=== PATIENT | male | born 1930 | race Caucasian/White ===

== ENCOUNTER 2020-09-03 21:08 | Emergency (ER) | payer MEDICARE, BC ==
[~2020-09-03] VITALS: Ht 188 cm; Wt 81.8 kg
[~2020-09-03 21:08] MED LIST: ALAVERT10 M1 PO; ASPIRIN E.C. 8181 MG PO; CALCIUM200 MG PO; CETIRIZINE10 MG PO; CIPRO 500MG TA500 MG PO; COUMADIN6 MG PO; DOCUSATE CALCI100 MG PO; FISH OIL1 IU PO; FLAGYL 250250 MG/TAB PO; LEVOTHROID0.05 MG PO; LEVOTHYROXINE0.1 MG PO; LISINOPRIL40 MG PO; LISINOPRIL5 MG PO; LOPRESSOR 550 MG/TAB PO; METOPROLOL TAR100 MG PO; MULTIPLE VITAMI1 CAP PO; PAROXETINE20 MG PO; PAXIL 20MG20 MG PO; SIMVASTATIN40 MG PO; TEMAZEPAM15 MG PO; VITAMIN D NATU400 IU PO; WARFARIN SODIUM1 MG PO; ZOCOR
[2020-09-03 21:31] LABS: BASO % 0.1 % (0.0-2.0); EOS % 0.5 % (0-4.0); GRAN # 7.4 (1.4-6.5); GRAN % 84.3 % (42.2-75.2); LYMPH # 0.3 (1.2-3.4); LYMPH % 3.9 % (20.0-51.0); MEAN CELL VOLUME 102 fl (80.0-100.0); MEAN CORPUSCULAR HGB CONC 33 g/dl (33.0-37.0); MEAN PLATELET VOLUME 11.4 fl (7.4-10.4); MONO # 0.9 (0.1-0.6); MONO % 9.7 % (1.7-9.3); PLATELET COUNT 174 K/mm3 (130-400); RED BLOOD COUNT 2.88 M/mm3 (4.20-5.60); REDCELL DISTRIBUTION WIDTH-CV 15.7 % (11.5-14.5)
[2020-09-03 21:48] LABS: ALBUMIN 3.7 gm/dL (3.5-5.0); BILIRUBIN,TOTAL 0.8 mg/dL (0.0-1.0); CALCIUM 9.8 mg/dL (8.4-10.2); CREATININE, serum 1.9 (0.66-1.25); POTASSIUM 3.2 mmol/L (3.4-5.0); TOTAL PROTEIN 6.6 gm/dL (6.4-8.2)
[2020-09-03 21:51] LABS: HEMATOCRIT 29.3 % (42.0-52.0); HEMOGLOBIN 9.7 g/dl (13.5-18.0); MEAN CORPUSCULAR HEMOGLOBIN 34 pg (27.0-31.0)
[2020-09-03 21:55] LABS: INR 3.9 (0.8-3.0); PROTHROMBIN TIME 43.8 SECONDS (9.7-12.8)
[2020-09-03 21:55] LABS: ARTERIAL BLD GAS O2 SATURATION 94.3 % (92-100); ARTERIAL BLD GAS TCO2 CT 22.2; ARTERIAL BLOOD GAS BASE EXCESS -2.6 (-2-2); ARTERIAL BLOOD GAS HCO3 21.2 meq/L (22-26); ARTERIAL BLOOD GAS PCO2 32.9 mmHg (35-45); ARTERIAL BLOOD GAS PO2 71.2 mmHg (80-100); ARTERIAL BLOOD GAS pH 7.43 (7.35-7.45)
[2020-09-03 23:29] LABS: COLLECTION METHOD CLEAN CATCH
[2020-09-03 23:47] LABS: PH 5 (5-8); SQUAMOUS EPITHELIAL 0-2 /hpf; URINE APPEARANCE Hazy; URINE BACTERIA Rare /hpf; URINE BILIRUBIN Negative (NEGATIVE); URINE BLOOD 3+ (NEGATIVE); URINE COLOR Yellow; URINE GLUCOSE Negative (NEGATIVE); URINE KETONE Negative (NEGATIVE); URINE LEUKOCYTE ESTERASE 2+ (NEGATIVE); URINE NITRATE Negative (NEGATIVE); URINE PROTEIN(semi-quant) 1+ (NEGATIVE); URINE UROBILINOGEN Negative (NEGATIVE)
[2020-09-04] MEDS ORDERED: CEPHALEXIN500 M1 PO (00:49)
[2020-09-04 01:39] VITALS: BP 144/70; PULSE 68; TEMP 98
== END 2020-09-04 01:39 | disposition home or self-care (01) ==
LOC: COL.ER 21:08
PROVIDERS: Family Medicine
DX: N39.0 Urinary tract infection, site not specified (principal); R79.1 Abnormal coagulation profile; I48.91 Unspecified atrial fibrillation; I10 Essential (primary) hypertension; Z79.01 Long term (current) use of anticoagulants; Z88.1 Allergy status to other antibiotic agents; Z79.82 Long term (current) use of aspirin
CPT/HCPCS: J0696; J7120

== ENCOUNTER 2021-01-16 16:54 | Observation (INO) | payer MEDICARE, BC ==
[~2021-01-16] VITALS: Ht 188 cm; Wt 79.6 kg
[~2021-01-16 16:54] MED LIST changes: +CEPHALEXIN500 M1 PO; -COUMADIN6 MG PO; +LASIX 40MG TABL40 MG PO; -LISINOPRIL40 MG PO; +MASON NATURAL2000 IU PO; +PRINIVIL10 MG PO; -VITAMIN D NATU400 IU PO
[2021-01-16 17:48] LABS: COLLECTION METHOD CLEAN CATCH
[2021-01-16 17:51] LABS: BASO % 0.2 % (0.0-2.0); EOS % 0.4 % (0-4.0); GRAN # 7.5 (1.4-6.5); GRAN % 81.8 % (42.2-75.2); HEMOGLOBIN 10.1 g/dl (13.5-18.0); LYMPH # 0.7 (1.2-3.4); LYMPH % 7.5 % (20.0-51.0); MEAN CELL VOLUME 102 fl (80.0-100.0); MEAN CORPUSCULAR HEMOGLOBIN 34 pg (27.0-31.0); MEAN CORPUSCULAR HGB CONC 33 g/dl (33.0-37.0); MEAN PLATELET VOLUME 11.6 fl (7.4-10.4); MONO # 0.9 (0.1-0.6); MONO % 9.3 % (1.7-9.3); PLATELET COUNT 209 K/mm3 (130-400); RED BLOOD COUNT 2.99 M/mm3 (4.20-5.60); REDCELL DISTRIBUTION WIDTH-CV 15.4 % (11.5-14.5)
[2021-01-16 17:54] LABS: HEMATOCRIT 30.5 % (42.0-52.0)
[2021-01-16 17:54] LABS: PH 6 (5-8); SQUAMOUS EPITHELIAL 0-2 /hpf; URINE APPEARANCE Clear; URINE BACTERIA None Seen /hpf; URINE BILIRUBIN Negative (NEGATIVE); URINE BLOOD Negative (NEGATIVE); URINE COLOR Yellow; URINE GLUCOSE Negative (NEGATIVE); URINE KETONE Negative (NEGATIVE); URINE LEUKOCYTE ESTERASE Negative (NEGATIVE); URINE NITRATE Negative (NEGATIVE); URINE PROTEIN(semi-quant) Negative (NEGATIVE); URINE RBC 0-2 /hpf; URINE UROBILINOGEN Negative (NEGATIVE)
[2021-01-16 18:04] LABS: ALANINE AMINOTRANSFERASE 12 U/L (4-49); ALBUMIN 3.8 gm/dL (3.5-5.0); ALKALINE PHOSPHATASE 65 U/L (50-136); ANION GAP 10 mmol/L (7-16); AST,SGOT 20 U/L (15-37); BILIRUBIN,TOTAL 0.7 mg/dL (0.0-1.0); BLOOD UREA NITROGEN 60 mg/dL (9-20); CALCIUM 10.4 mg/dL (8.4-10.2); CARBON DIOXIDE 23 mmol/L (22-30); CHLORIDE 100 mmol/L (98-107); CREATININE, serum 2.24 (0.66-1.25); GLUCOSE 94 mg/dL (74-106); LIPASE 102 U/L (23-300); POTASSIUM 3.4 mmol/L (3.4-5.0); SODIUM 133 mmol/L (137-145); TOTAL PROTEIN 6.9 gm/dL (6.4-8.2)
[2021-01-16 18:24] LABS: TROPONIN-I < 0.012 ng/mL (0.000-0.035)
[2021-01-16] MEDS ORDERED: ZYLOPRIM 300MG300 MG PO (20:28)
[2021-01-16] MEDS ORDERED: ZOLOFT 100MG100 MG PO (20:36)
--- NOTE | 2021-01-16 23:16 | NUR ---
Patient arrived to medical floor room 355 via wheelchair from ER at 22:30 pm. Patient alert and oriented to person only. Patient is very hard of hearing. Patient appears very weak and tired. Assessment completed and charted. Oriented patient to the room. Patient denies any pain or discomfort. Denies chest pain, SOB, N/V, dizziness, or diarrhea. Provided 1 cup of orange juice per patient request. Scheduled meds given per JAN. Call light within reach. Patient denies any needs at this time.
[2021-01-16 23:46] VITALS: BP 119/68; PULSE 74; TEMP 97.2
[2021-01-17] MEDS ORDERED: COUMADIN 6MG6 MG/TAB PO (00:24)
[2021-01-17 00:47] LABS: INR 3.9 (0.8-3.0)
[2021-01-17 03:45] VITALS: BP 125/56; PULSE 78; TEMP 98.2
[2021-01-17 08:00] VITALS: BP 107/51; PULSE 70; TEMP 97.8
[2021-01-17 08:34] LABS: CALCIUM 10.5 mg/dL (8.4-10.2); CREATININE, serum 2.04 (0.66-1.25); POTASSIUM 3.1 mmol/L (3.4-5.0)
--- NOTE | 2021-01-17 09:36 | NUR ---
Pt awake and alert upon entry to room, no C/O pain currently. Shift assessment complete, left Pt call light in reach, bed in lowest position.
--- NOTE | 2021-01-17 09:39 | NUR ---
Initial visit; Patient thanked Aerographer for offering God's blessings and keeping him in Aerographer's prayers.
[2021-01-17 11:46] VITALS: BP 123/67; PULSE 70; TEMP 97.3
--- NOTE | 2021-01-17 15:11 | NUR ---
Eligibility Examiner attempted to discuss discharge planning with patient however patient was asleep when SW attempted. SW then contacted patient's daughter, Lou (ph#[phone]) to discuss discharge planning. Per Lou, patient lives at [facility] with his , Saadia and sees Dr. Garcia for primary care. Patient uses a walker for ambulation and is normally independent with ADLS. Lou reports patient is on a "Phase II" plan at [facility] meaning the only thing he receives assistance with is medications. Lou states patient's is on "Phase III" which means she receives more assistance with ADLS. Lou reports patient has more updated DPOA-HC paperwork since her sister, Juliet in June. Lou emailed updated paperwork which designates Lou Zee, and patient's son, Jose Elias (ph#[phone]). MORENITA reviewed PT/OT recommendation for SNF. Lou states patient may not be agreeable to this and would very likely want to return to [place]. MORENITA contacted SARAH Herrera at [facility] who advised they would likely accept patient back and could even have Home Health come in. MORENITA faxed clinical updates and will continue to follow.
[2021-01-17 17:17] VITALS: BP 129/62; PULSE 80; TEMP 97.9
[2021-01-17 19:47] VITALS: BP 128/71; PULSE 76; TEMP 97.9
--- NOTE | 2021-01-17 20:00 | NUR ---
Patient awake, sitting in the recliner. He is alert and oriented. He denies pain. Potassium protocol ongoing. Lungs are clear. Instructed on fluid restriction. Chair alarm on. Call light within reach.
[2021-01-18 00:33] VITALS: BP 113/58; PULSE 77; TEMP 98.1
[2021-01-18 05:02] VITALS: BP 114/63; PULSE 61; TEMP 97.8
--- NOTE | 2021-01-18 06:12 | NUR ---
Patient had been asleep most of the night. He transferred from recliner to bed at around 2300H. He did try to get out of bed in the middle of the night to use the restroom. Assisted patient with walker and gaitbelt. He denies pain. Bed alarm on.
--- NOTE | 2021-01-18 07:10 | NUR ---
0710 assessment as charted. PT resting in bed. PT reoreinted to the date and time . telemetry on HR irregular. pt has 3+ pitting edema to BLE. [facility] checks wnl. INT to rt arm intact, no redness. PT denies c/o pain.
[2021-01-18 07:26] LABS: INR 3.6 (0.8-3.0); PROTHROMBIN TIME 41.2 SECONDS (9.7-12.8)
[2021-01-18 07:29] LABS: BASO % 0.3 % (0.0-2.0); EOS # 0.1 (0.0-0.7); EOS % 1.2 % (0-4.0); GRAN # 4.4 (1.4-6.5); GRAN % 74.8 % (42.2-75.2); LYMPH # 0.7 (1.2-3.4); LYMPH % 11.3 % (20.0-51.0); MEAN CELL VOLUME 101 fl (80.0-100.0); MEAN CORPUSCULAR HGB CONC 34 g/dl (33.0-37.0); MONO # 0.7 (0.1-0.6); MONO % 11.7 % (1.7-9.3); PLATELET COUNT 205 K/mm3 (130-400); RED BLOOD COUNT 2.72 M/mm3 (4.20-5.60); REDCELL DISTRIBUTION WIDTH-CV 15.1 % (11.5-14.5)
[2021-01-18 07:30] LABS: HEMATOCRIT 27.4 % (42.0-52.0); HEMOGLOBIN 9.2 g/dl (13.5-18.0); MEAN CORPUSCULAR HEMOGLOBIN 34 pg (27.0-31.0)
[2021-01-18 07:35] LABS: CALCIUM 10.1 mg/dL (8.4-10.2); CREATININE, serum 1.79 (0.66-1.25); MAGNESIUM 1.9 mg/dL (1.6-2.3); POTASSIUM 3.5 mmol/L (3.4-5.0)
[2021-01-18 08:42] VITALS: BP 109/59; PULSE 72; TEMP 98.2
--- NOTE | 2021-01-18 11:00 | NUR ---
pt sitting in chair with alarm on. no changes w/ intial assessment. call light in reach.
[2021-01-18 12:08] VITALS: BP 126/65; PULSE 75; TEMP 98.3
[2021-01-18] MEDS ORDERED: COUMADIN4 MG PO (12:12)
[2021-01-18] MEDS ORDERED: LASIX 20MG TABL20 MG PO (12:12)
--- NOTE | 2021-01-18 13:46 | NUR ---
Manufacturing Project Manager was notified by Hospitalist team that patient is ready for discharge today. MORENITA contacted SARAH Herrera at [facility] who advised they are able to accept patient back today. MORENITA then contacted patient's daughter, Lou who will picker feeder patient this afternoon and take him back to [facility]. MORENITA discussed Home Health services with Lou who selected [facility]. MORENITA contacted Seema at [facility] and faxed referral/orders. MORENITA also faxed discharge orders to Sharon at [facility]. No additional needs at this time.
--- NOTE | 2021-01-18 14:45 | NUR ---
Pt discharged to [facility]. Discussed discharge information with Pt and family, escorted Pt to entrance, assisted into vehicle. Pt left with family via private transportation.
== END 2021-01-18 14:45 | disposition home or self-care (01) ==
LOC: COL.ER 16:54 → MEDICAL 18:52
PROVIDERS: Emergency Medicine; Hospitalist; Internal Medicine; Student in an Organized Health Care Education/Training Program; ADMIT Family Medicine
DX: I13.0 Hypertensive heart and chronic kidney disease with heart failure and stage 1 through stage 4 chronic kidney disease, or unspecified chronic kidney disease (principal); N18.9 Chronic kidney disease, unspecified; I50.9 Heart failure, unspecified; D63.1 Anemia in chronic kidney disease; E78.5 Hyperlipidemia, unspecified; E03.9 Hypothyroidism, unspecified; F32.9 Major depressive disorder, single episode, unspecified; M10.9 Gout, unspecified; N40.0 Benign prostatic hyperplasia without lower urinary tract symptoms; E87.6 Hypokalemia; I08.3 Combined rheumatic disorders of mitral, aortic and tricuspid valves; I48.19 Other persistent atrial fibrillation; Z85.46 Personal history of malignant neoplasm of prostate; Z88.1 Allergy status to other antibiotic agents
CPT/HCPCS: 99223-AI; G0378; J1644; J1940